=== PATIENT | male | born 1950 | race Caucasian/White ===

== ENCOUNTER 2020-07-09 06:58 | Inpatient (IN) ==
[2020-07-05 12:32] LABS: INR 4.7; PT Patient Result 46.3 SECS (9.8-11.9)
[2020-07-05 12:42] LABS: Basophils % 0.2 % (0.0-0.8); Eosinophils # 0.3 10*3/uL (0.0-0.87); Eosinophils % 2.7 % (0.00-10.9); Hematocrit 22.6 VOL% (42.0-52.0); Immature Granulocytes % 0.6 %; Immature Granulocytes Absolute 0.07 #; Lymphocytes # 1.5 10*3/uL (1.4-4.0); Lymphocytes % 11.9 % (21.2-54.2); Mean Corpuscular HGB Conc 26.1 GM/DL (32-36); Mean Corpuscular Volume 56.1 FL (87-102); Monocytes % 11.3 % (1.7-12.7); NRBC # 0.08 10*3/uL; Neutrophils % 73.3 % (38.7-73.9); Platelet Count 538 T/CUMM (130-400); Red Blood Count 4.03 MC/CUMM (3.8-5.5); Red Cell Distribution Width 19.2 % (9.3-17.3); White Blood Count 12.5 T/CUMM (4-12)
[2020-07-05 12:45] LABS: Calcium 8.6 MG/DL (8.5-10.1); Hemoglobin 5.9 GM/DL (14.0-18.0); Osmolality,Calculated 277.5 MOS/KG (273-304)
[2020-07-05 13:06] LABS: Hypochromasia 2+; Platelet Estimate Increased; Poikilocytosis 1+
[2020-07-05 13:07] LABS: Burr Cells Few; Ovalocytes Few; Tear Drop Cells Few
[2020-07-05 13:08] LABS: Anisocytosis 2+; Misc Morphology 12
[~2020-07-09 06:58] MED LIST: ALVIMOPAN 12 MG CAPSULE PO ONE; ERTAPENEM 1,000 MG in SODIUM CHLORIDE 0.9% 100 ML IV ONE
[2020-07-09] MEDS ORDERED: ALVIMOPAN 12 MG CAPSULE ONE (07:30)
[2020-07-09] MEDS ORDERED: ERTAPENEM 1,000 MG VIAL ONE (07:31)
[2020-07-09] MEDS ORDERED: DIAZEPAM 2 MG TABLET PO ONE (07:47)
[2020-07-09] MEDS ORDERED: FAMOTIDINE 20 MG TABLET PO ONE (07:47)
[2020-07-09] MEDS: LACTATED RINGERS 1,000 ML IV SCH ×3 (07:50→18:45)
[2020-07-09 07:54] LABS: Hemoglobin 7.6 GM/DL (14.0-18.0)
[2020-07-09] MEDS ORDERED: DIAZEPAM 2 MG TABLET ONE (08:04)
[2020-07-09] MEDS ORDERED: FAMOTIDINE 20 MG TABLET ONE (08:04)
[2020-07-09] MEDS ORDERED: DIAZEPAM 5 MG TABLET PO STA (08:07)
[2020-07-09] MEDS ORDERED: DIAZEPAM 5 MG TABLET ONE (08:15)
[2020-07-09] MEDS ORDERED: BUPIVACAINE MPF 0.5% /EPI 30 ML VIAL ONE (13:29)
[2020-07-09] MEDS ORDERED: LIDOCAINE 1% 5 ML VIAL ONE (13:29)
[2020-07-09] MEDS ORDERED: DEXMEDETOMIDINE 200 MCG/2 ML VIAL ONE (13:30)
[2020-07-09] MEDS ORDERED: DEXAMETHASONE 4 MG/1 ML VIAL ONE ×2 (13:30→18:51)
[2020-07-09] MEDS ORDERED: BUPIVACAINE MPF 0.25% 30 ML VIAL ONE (13:53)
[2020-07-09] MEDS ORDERED: TISSUE ADHESIVE 1 EACH APPLICATOR TOP ONE (13:53)
[2020-07-09] MEDS ORDERED: LIDOCAINE 1%/EPI INJ 20 ML VIAL ONE (13:53)
[2020-07-09] MEDS ORDERED: INDOCYANINE GREEN 25 MG VIAL IV ONE (16:50)
[2020-07-09] MEDS ORDERED: SUGAMMADEX 200 MG/2 ML VIAL IV ONE (18:17)
[2020-07-09] MEDS ORDERED: DESFLURANE 1 UNIT/15 MINUTE INH ONE (18:50)
[2020-07-09] MEDS ORDERED: LIDOCAINE 2% 5 ML VIAL ONE (18:50)
[2020-07-09] MEDS ORDERED: ROCURONIUM 100 MG/10 ML VIAL IV ONE (18:51)
[2020-07-09] MEDS ORDERED: ONDANSETRON 4 MG/2 ML VIAL ONE (18:51)
[2020-07-09] MEDS ORDERED: LACTATED RINGERS 1,000 ML IV ONE ×2 (18:51→19:51)
[2020-07-09] MEDS ORDERED: ETOMIDATE 40 MG/20 ML VIAL IV ONE (18:51)
[2020-07-09] MEDS ORDERED: fentaNYL 100 MCG/2 ML VIAL ONE (18:51)
[2020-07-09] MEDS ORDERED: ACETAMINOPHEN 1,000 MG/100 ML VIAL IV ONE (18:51)
[2020-07-09] MEDS ORDERED: SUCCINYLCHOLINE 200 MG/10 ML VIAL ONE (18:51)
[2020-07-09] MEDS ORDERED: HYDROmorphone 2 MG/1 ML VIAL IV PRN (18:53)
[2020-07-09] MEDS ORDERED: ONDANSETRON 4 MG/2 ML VIAL IV PRN ×2 (18:53→19:00)
[2020-07-09] MEDS: HYDROmorphone 2 MG/1 ML VIAL IV PRN ×4 (19:00→19:15)
[2020-07-09 19:37] LABS: Calcium 8.4 MG/DL (8.5-10.1); Osmolality,Calculated 284.4 MOS/KG (273-304)
[2020-07-09 19:57] LABS: Basophils % 0.2 % (0.0-0.8); Eosinophils % 0.1 % (0.00-10.9); Hematocrit 28.3 VOL% (42.0-52.0); Hemoglobin 7.6 GM/DL (14.0-18.0); Immature Granulocytes % 0.5 %; Immature Granulocytes Absolute 0.11 #; Lymphocytes # 0.7 10*3/uL (1.4-4.0); Lymphocytes % 3.5 % (21.2-54.2); Mean Corpuscular HGB Conc 26.9 GM/DL (32-36); Mean Corpuscular Volume 64.6 FL (87-102); Monocytes % 4.4 % (1.7-12.7); NRBC # 0.02 10*3/uL; Neutrophils % 91.3 % (38.7-73.9); Platelet Count 609 T/CUMM (130-400); Red Blood Count 4.38 MC/CUMM (3.8-5.5); Red Cell Distribution Width 30.3 % (9.3-17.3); White Blood Count 20.5 T/CUMM (4-12)
[2020-07-09] MEDS ORDERED: LORazepam 2 MG/1 ML VIAL IV PRN (20:15)
[2020-07-09 20:38] LABS: Hypochromasia 2+; Lymphocytes 3 % (20-55); Microcytosis 3+; Platelet Estimate Normal; Segmented Neutrophils 95 % (50-85); Total Cells Counted 100
[2020-07-09 20:39] LABS: Anisocytosis 2+; Polychromasia 2+
[2020-07-09 21:57] LABS: ABG Base Excess -2.2 MMOL/L (-2.5-2.5); ABG HCO3 22.5 MMOL/L (20-26); ABG Oxygen Saturation 98.2 % (95-100); ABG PCO2 42.5 MM HG (35-48); ABG PH 7.346 (7.35-7.45); ABG TCO2 22.2 MMOL/L (23-27)
[2020-07-09] MEDS: KETOROLAC 30 MG/1 ML VIAL IV SCH (22:03)
[2020-07-09] MEDS: ALVIMOPAN 12 MG CAPSULE PO SCH (22:18)
[2020-07-09 22:20] LABS: Basophils % 0.1 % (0.0-0.8); Eosinophils # 0.2 10*3/uL (0.0-0.87); Eosinophils % 0.9 % (0.00-10.9); Hematocrit 24.8 VOL% (42.0-52.0); Hemoglobin 6.6 GM/DL (14.0-18.0); Immature Granulocytes % 0.4 %; Immature Granulocytes Absolute 0.08 #; Lymphocytes # 0.3 10*3/uL (1.4-4.0); Lymphocytes % 1.5 % (21.2-54.2); Mean Corpuscular HGB Conc 26.6 GM/DL (32-36); Mean Corpuscular Volume 65.3 FL (87-102); Mean Platelet Volume 9.8 FL (9.6-12.0); Monocytes % 8.7 % (1.7-12.7); NRBC # 0.04 10*3/uL; Neutrophils % 88.4 % (38.7-73.9); Platelet Count 593 T/CUMM (130-400); Red Cell Distribution Width 29.6 % (9.3-17.3); White Blood Count 20.4 T/CUMM (4-12)
[2020-07-09] MEDS ORDERED: INFLUENZA VIRUS VACCINE 0.5 ML SYRINGE IM ONE (22:23)
[2020-07-09 23:03] LABS: Band Neutrophils 6 % (0-10); Lymphocytes 3 % (20-55); Metamyelocytes 1 %; Segmented Neutrophils 87 % (50-85); Total Cells Counted 100
[2020-07-09 23:04] LABS: Anisocytosis 3+; Microcytosis 3+; Polychromasia 2+; Toxic Granulation 1+
[2020-07-09 23:05] LABS: Calcium 8.3 MG/DL (8.5-10.1); Osmolality,Calculated 285.3 MOS/KG (273-304); Poikilocytosis 1+
[2020-07-09 23:07] LABS: Platelet Estimate Increased
[2020-07-10] MEDS: KETOROLAC 30 MG/1 ML VIAL IV SCH ×4 (03:59→21:06)
[2020-07-10 04:30] LABS: Basophils % 0.1 % (0.0-0.8); Hematocrit 20.7 VOL% (42.0-52.0); Immature Granulocytes % 0.5 %; Immature Granulocytes Absolute 0.09 #; Lymphocytes # 0.5 10*3/uL (1.4-4.0); Lymphocytes % 2.7 % (21.2-54.2); Mean Corpuscular HGB Conc 27.5 GM/DL (32-36); Mean Corpuscular Volume 63.9 FL (87-102); Mean Platelet Volume 10.5 FL (9.6-12.0); Monocytes % 5.8 % (1.7-12.7); NRBC # 0.03 10*3/uL; Neutrophils % 90.9 % (38.7-73.9); Platelet Count 506 T/CUMM (130-400); Red Blood Count 3.24 MC/CUMM (3.8-5.5); Red Cell Distribution Width 29.2 % (9.3-17.3); White Blood Count 18.9 T/CUMM (4-12)
[2020-07-10 04:45] LABS: Calcium 8.1 MG/DL (8.5-10.1); Osmolality,Calculated 285.3 MOS/KG (273-304)
[2020-07-10 04:45] LABS: ABG Base Excess 1.4 MMOL/L (-2.5-2.5); ABG HCO3 25.7 MMOL/L (20-26); ABG Oxygen Saturation 98.6 % (95-100); ABG PCO2 39.4 MM HG (35-48); ABG PH 7.424 (7.35-7.45); ABG PO2 99.4 MM HG (80-95); ABG TCO2 24.8 MMOL/L (23-27); Allen Test Positive
[2020-07-10] MEDS: LACTATED RINGERS 1,000 ML IV SCH ×3 (05:00→21:14)
[2020-07-10 05:09] LABS: Hemoglobin 5.7 GM/DL (14.0-18.0)
[2020-07-10] MEDS ORDERED: SODIUM CHLORIDE 0.9% 1,000 ML IV PRN (05:24)
[2020-07-10 05:57] LABS: Acanthocytes 2+; Anisocytosis 3+; Band Neutrophils 4 % (0-10); Hypochromasia 3+; Lymphocytes 4 % (20-55); Macrocytosis 2+; Metamyelocytes 3 %; Microcytosis 1+; Ovalocytes Few; Platelet Estimate Increased; Polychromasia 2+; Segmented Neutrophils 84 % (50-85); Target Cells 2+; Total Cells Counted 100
[2020-07-10] MEDS: ALVIMOPAN 12 MG CAPSULE PO SCH ×2 (08:20→21:06)
[2020-07-10 16:44] LABS: Hematocrit 26.3 VOL% (42.0-52.0)
[2020-07-10 16:46] LABS: Hemoglobin 7.6 GM/DL (14.0-18.0)
[2020-07-11] MEDS: KETOROLAC 30 MG/1 ML VIAL IV SCH ×4 (02:49→20:31)
[2020-07-11] MEDS: LACTATED RINGERS 1,000 ML IV SCH (06:41)
[2020-07-11 06:59] LABS: Basophils % 0.1 % (0.0-0.8); Eosinophils % 0.1 % (0.00-10.9); Hematocrit 22.6 VOL% (42.0-52.0); Hemoglobin 6.7 GM/DL (14.0-18.0); Immature Granulocytes % 0.6 %; Lymphocytes # 1.3 10*3/uL (1.4-4.0); Mean Corpuscular HGB Conc 29.6 GM/DL (32-36); Mean Corpuscular Volume 67.3 FL (87-102); Monocytes % 9.2 % (1.7-12.7); NRBC # 0.05 10*3/uL; Platelet Count 415 T/CUMM (130-400); Red Blood Count 3.36 MC/CUMM (3.8-5.5); Red Cell Distribution Width 30.9 % (9.3-17.3); White Blood Count 16.1 T/CUMM (4-12)
[2020-07-11 07:21] LABS: Calcium 8.5 MG/DL (8.5-10.1); Osmolality,Calculated 283.3 MOS/KG (273-304)
[2020-07-11] MEDS ORDERED: SODIUM CHLORIDE 0.9% 1,000 ML IV PRN (07:39)
[2020-07-11] MEDS ORDERED: METOPROLOL TARTRATE 5 MG/5 ML VIAL IV ONE (08:18)
[2020-07-11] MEDS ORDERED: FUROSEMIDE 40 MG/4 ML VIAL IV ONE (08:22)
[2020-07-11] MEDS: ALVIMOPAN 12 MG CAPSULE PO SCH ×2 (10:26→20:31)
[2020-07-11 11:51] LABS: Polychromasia Few; Schistocytes Few; Target Cells 1+
[2020-07-11 11:52] LABS: Atypical Lymphocytes Few; Hypochromasia 3+; Microcytosis 3+; Ovalocytes Few; Poikilocytosis 3+; Tear Drop Cells Few
[2020-07-11 11:53] LABS: Platelet Estimate Increased
[2020-07-11 20:07] LABS: Hematocrit 27.7 VOL% (42.0-52.0); Hemoglobin 8.4 GM/DL (14.0-18.0)
[2020-07-12] MEDS: KETOROLAC 30 MG/1 ML VIAL IV SCH ×2 (03:13→10:15)
[2020-07-12 07:07] LABS: Basophils % 0.1 % (0.0-0.8); Eosinophils # 0.5 10*3/uL (0.0-0.87); Hemoglobin 8.3 GM/DL (14.0-18.0); Immature Granulocytes % 0.8 %; Immature Granulocytes Absolute 0.13 #; Lymphocytes # 1.7 10*3/uL (1.4-4.0); Lymphocytes % 10.7 % (21.2-54.2); Mean Corpuscular HGB Conc 30.7 GM/DL (32-36); Mean Corpuscular Volume 69.9 FL (87-102); Mean Platelet Volume 10.3 FL (9.6-12.0); Monocytes % 8.4 % (1.7-12.7); NRBC # 0.05 10*3/uL; Platelet Count 437 T/CUMM (130-400); Red Blood Count 3.86 MC/CUMM (3.8-5.5)
[2020-07-12 07:17] LABS: Calcium 8.4 MG/DL (8.5-10.1); Osmolality,Calculated 280.4 MOS/KG (273-304)
[2020-07-12 07:28] LABS: Anisocytosis 3+; Platelet Estimate Normal; Poikilocytosis 1+; Polychromasia 1+
[2020-07-12 07:29] LABS: Hypochromasia 1+; Target Cells Few
[2020-07-12] MEDS ORDERED: ENOXAPARIN 80 MG/0.8 ML SYRINGE SUBCUT SCH (09:00)
[2020-07-12] MEDS ORDERED: POTASSIUM CHLORIDE 20 MEQ TABLET PO ONE (10:10)
[2020-07-12] MEDS: ALVIMOPAN 12 MG CAPSULE PO SCH (10:12)
[2020-07-12] MEDS ORDERED: METOPROLOL TARTRATE 25 MG TABLET PO SCH (10:30)
[2020-07-12] MEDS ORDERED: ASCORBIC ACID 500 MG TABLET PO SCH (10:30)
[2020-07-12 11:06] LABS: INR 1.1; PT Patient Result 11.3 SECS (9.8-11.9)
[2020-07-12 11:47] VITALS: BP 135/58
[2020-07-12] MEDS ORDERED: WARFARIN 5 MG TABLET PO SCH (18:00)
== END 2020-07-28 13:48 | DRG 329 ==
LOC: N.CC 06:58 → N.SDSINP 06:58 → N.OR 06:58 → N.SDSINP 06:59 → N.CC 21:01 → N.SDSINP 21:01 → N.3E 07-10 10:36 → UNDODISIN 07-12 14:00 → N.SDSINP 07-12 22:32 → N.TELES 07-22 16:54 → N.SDSINP 07-22 16:54
PROVIDERS: ADMIT Surgery; ATTEND Surgery